=== PATIENT | female | born 1955 | race Caucasian/White ===

== ENCOUNTER 2016-08-18 07:00 | Inpatient (IN) | payer OTHER ==
--- NOTE | ~2016-08-18 | HP ---
Unit #: [id number] #: [id number] Patient: TERRENCE RODGERS [id number] [place] [address] [id number] I MR#: [id number] NAME: TERRENCE RODGERS ROOM: P256 Age: 61 Sex: F Admission Date: 08/18/2016 : 1955 Attending Physician: Praveen Cabrales M.D. Admitting Physician: Praveen Cabrales M.D. Primary Care Physician: Generic Doctor Not In System HISTORY AND PHYSICAL HISTORY OF PRESENT ILLNESS Terrence is a 61 year old admitted to [address] [place] [address] with depression and after an alleged overdose of Seroquel. PAST MEDICAL HISTORY 1. Hypothyroidism. 2. Hypercholesterolemia. 3. High blood pressure. PAST SURGICAL HISTORY Nothing reported. ALLERGIES No known drug allergies. SOCIAL HISTORY She denies cigarettes, alcohol and illicit drug use. FAMILY HISTORY Medically noncontributory. REVIEW OF SYSTEMS CONSTITUTIONAL: No fever or chills. HEENT: Denies any sore throat, ear pain or runny nose. CARDIOVASCULAR: Denies chest pain, irregular heart rhythm or palpitations. CHEST: Denies shortness of breath or cough. No hemoptysis. GASTROINTESTINAL: Denies nausea, vomiting, diarrhea or chronic constipation. ENDOCRINE: Denies history of increased thirst or urination. No recent significant weight loss or gain. GENITOURINARY: Denies dysuria, frequency, or hematuria. SKIN: Denies any rashes. HEMATOLOGIC: Denies history of increased bleeding or bruising. MUSCULOSKELETAL: Denies any hot, swollen joints. No generalized muscle pain. NEUROLOGIC: Denies problems with vision or speech. No frequent, severe headaches. No numbness, tingling or weakness in any extremities. Denies loss of bladder or bowel control. CURRENT MEDICATIONS No orders received at the time of this dictation. PHYSICAL EXAMINATION Unit #: [id number] #: [id number] Patient: TERRENCE RODGERS GENERAL: Alert, well-nourished, in no apparent distress. VITAL SIGNS: Blood pressure 100/60, heart rate 70, respirations 16, temperature 98.6. WEIGHT: 124. HEIGHT: 5 feet 0 inches. SKIN: Warm and dry without rash or lesion. HEENT: Normocephalic. TMs not viewed. Oral and nasal passages clear. Conjunctivae clear. PERRLA. EOMs intact. NECK: Supple without lymphadenopathy or thyromegaly. HEART: Regular rate and rhythm without murmur. LUNGS: Clear. ABDOMEN: Soft, nontender. : Not done. EXTREMITIES: No evidence of cyanosis, clubbing or edema. Moves all without focal deficit. NEUROLOGICAL: Grossly within normal limits. Cranial Nerves: II: Visual mcadams are intact. III, IV AND : Extraocular movements are intact. Pupils are equal, round and reactive to light. V: Facial sensation is grossly normal. VII: Facial movements and expression are normal. VIII: Auditory acuity grossly intact. IX, X: Uvula is midline. Phonation is normal. XI: Patient shrugs shoulders and turns head normally. XII: Tongue protrudes in the midline. Sensory and Motor Function: Sensory and motor sensation is grossly normal. Motor: moves all extremities well. Coordination: Gait is normal. Deep Tendon Reflexes: Intact. IMPRESSION Psychiatric admission. RECOMMENDATIONS PSYCHIATRIC: Per psychiatrist. MEDICAL: See no contraindications to participate in facility's activities. MEDICAL PROGNOSIS Good. MEDICAL CONDITION Stable. Dictated by... Mariah Gutierrez P.A.-C. for Paige Mcdaniels/ramón TD: 08/18/2016 18:17 JOB #: [id number] Unit #: [id number] #: [id number] Patient: TERRENCE RODGERS HISTORY AND PHYSICAL Page 1 of 1 X Mariah Gutierrez HISTORY AND PHYSICAL
--- NOTE | ~2016-08-18 | PN ---
Unit #: [id number] #: [id number] Patient: TERRENCE RODGERS [id number] [facility] [address] [place] [address] [id number] I MR#: [id number] NAME: TERRENCE RODGERS ROOM: P256 Age: 61 Sex: F Admission Date: 08/18/2016 : 1955 Attending Physician: Praveen Cabrales M.D. Admitting Physician: Praveen Cabrales M.D. Primary Care Physician: Generic Doctor Not In System [facility] PROGRESS NOTES DATE 08/21/2016 DISCUSSION Ms. Wyatt is a 61-year-old female seen on 08/21/2016. The patient was started on Latuda tolerating medication fairly well. Mood sad, dysphoric, flat affect, guarded, very superficial denied any complaints. Complete review of systems unremarkable. MENTAL STATUS EXAMINATION General appearance, the patient dressed casually. Attention span and concentration fair. Oriented to place and person. Mood and affect sad, dysphoric, speech monotone. Thought process concrete. The patient denied any thoughts of harming self or others. Recent and remote memory poor. Insight and judgement poor. DIAGNOSES Bipolar mood disorder NOS F31.9 ASSESSMENT/PLAN Advise to continue with current medication and therapeutic protocol. The patient will be on Latuda 40 mg today. We will also get a family session before discharging the patient. Continue with the inpatient programming. Dictated by... Paige Salinas/migdalia TD: 08/24/2016 02:48 JOB #: [id number] [facility] PROGRESS NOTES Page 1 of 1 X Praveen Cabrales MD PROGRESS NOTE
--- NOTE | ~2016-08-18 | PN ---
Unit #: [id number] #: [id number] Patient: TERRENCE RODGERS [id number] [facility] [address] [place] [address] [id number] I MR#: [id number] NAME: TERRENCE RODGERS ROOM: P256 Age: 61 Sex: F Admission Date: 08/18/2016 : 1955 Attending Physician: Praveen Cabrales M.D. Admitting Physician: Praveen Cabrales M.D. Primary Care Physician: Generic Doctor Not In System [facility] PROGRESS NOTES DATE OF SERVICE 08/19/16 DISCUSSION Ms. Wyatt is a 61-year-old female seen on 08/19/16. Patient pleasant, cooperative, dressed casually. Attention span and concentration fair. Oriented in place and person. Mood sad, dysphoric. Patient was able to maintain safe behavior on the unit, but reported above-mentioned symptoms. COMPLETE REVIEW OF SYSTEMS Unremarkable. MENTAL STATUS EXAMINATION GENERAL APPEARANCE: Patient dressed casually. ATTENTION SPAN AND CONCENTRATION: Fair. Oriented in time, place and person. MOOD AND AFFECT: Sad, dysphoric. SPEECH: Monotone. THOUGHT PROCESS: [place]. Patient denied any thoughts of harming self or others, but sad, depressed, withdrawn, isolative. RECENT AND REMOTE MEMORY: Poor. INSIGHT AND JUDGMENT: Poor. DIAGNOSIS Bipolar mood disorder, NOS, F31.9 ASSESSMENT/PLAN Advised to continue with current medication and therapeutic protocol. If needed, consider alternate medication. We will continue to monitor patient mood and behavior closely. Dictated by... Paige Salinas/britney TD: 08/20/2016 10:43 JOB #: [id number] Unit #: [id number] #: [id number] Patient: TERRENCE RODGERS [facility] PROGRESS NOTES Page 1 of 1 X Praveen Cabrales MD PROGRESS NOTE
--- NOTE | ~2016-08-18 | DS ---
Unit #: [id number] #: [id number] Patient: TERRENCE RODGERS [id number] [facility] [address] [place] [address] [id number] I MR#: [id number] NAME: TERRENCE RODGERS ROOM: P256 Age: 61 Sex: F Admission Date: 08/18/2016 : 1955 Discharge Date: 08/22/2016 Attending Physician: Praveen Cabrales M.D. Primary Care Physician: Generic Doctor Not In System DISCHARGE SUMMARY REASON FOR ADMISSION Depression. DIAGNOSTIC STUDIES LABORATORY RESULTS: Unremarkable. HOSPITAL COURSE The patient was admitted to inpatient unit on 08/18/2016 and discharged on 08/22/2016. The patient was treated on the inpatient unit with group therapy, psychotherapy, individual therapy, structured milieu, medication management. The patient responsive to treatment. Subsequently, the patient was discharged with a plan to follow up in outpatient program. DISCHARGE MEDICATIONS Latuda 40 mg daily for mood stabilization. DISCHARGE DIAGNOSES Psychiatric: Bipolar mood disorder, recurrent, depressed, F31.9; obsessive-compulsive disorder. Secondary diagnosis: Deferred. Medical diagnosis: Hypothyroidism, hypercholesterolemia, hypertension. Stressors: Psychosocial stressors. DISCHARGE INSTRUCTIONS The patient to follow up in outpatient clinic as per medical social worker. CONDITION ON DISCHARGE The patient was pleasant and cooperative. Denied any psychotic symptom or any suicidal ideation. PROGNOSIS Guarded. DIET AND ACTIVITY As tolerated. Dictated by... Praveen Cabrales M.D. Unit #: [id number] #: [id number] Patient: TERRENCE RODGERS SZC/modl TD: 08/23/2016 20:00 JOB #: [id number] DISCHARGE SUMMARY Page 1 of 1 X Praveen Cabrales MD X DISCHARGE SUMMARY
--- NOTE | ~2016-08-18 | PN ---
Unit #: [id number] #: [id number] Patient: TERRENCE RODGERS [id number] [facility] [address] [place] [address] [id number] I MR#: [id number] NAME: TERRENCE RODGERS ROOM: P256 Age: 61 Sex: F Admission Date: 08/18/2016 : 1955 Attending Physician: Praveen Cabrales M.D. Admitting Physician: Praveen Cabrales M.D. Primary Care Physician: Generic Doctor Not In System [facility] PROGRESS NOTES DATE 08/20/2016 DISCUSSION Ms. Wyatt is a 61-year-old female seen on 08/20/2016. The patient interviewed, chart reviewed. Obtained information from nursing staff. The patient was compliant and cooperative. Mood sad, dysphoric, flat affect, guarded. The patient did not show any aggressive behavior but still having mood lability. The patient was on Seroquel. The patient agreed with a plan to try Latuda for mood stabilization. Complete review of systems unremarkable. MENTAL STATUS EXAMINATION General appearance, the patient dressed casually. Attention span and concentration fair. Oriented to place and person. Mood and affect labile. Speech monotone. Thought process concrete. The patient denied any thoughts of harming self or others. Recent and remote memory poor. Insight and judgement poor. DIAGNOSES Bipolar mood disorder NOS ASSESSMENT/PLAN Advise to continue with current medication and therapeutic protocol and start Latuda 20 mg and going up to 40 mg daily. If needed consider further adjustment of medication. Dictated by... Paige Salinas/migdalia TD: 08/23/2016 01:54 JOB #: [id number] Unit #: [id number] #: [id number] Patient: TERRENCE RODGERS [facility] PROGRESS NOTES Page 1 of 1 X Praveen Cabrales MD X PROGRESS NOTE
--- NOTE | ~2016-08-18 | PA ---
Unit #: [id number] #: [id number] Patient: TERRENCE RODGERS [id number] [facility] [address] [place] [address] [id number] I MR#: [id number] NAME: TERRENCE RODGERS ROOM: P256 Age: 61 Sex: F Admission Date: 08/18/2016 : 1955 Date of Assessment: Attending Physician: Praveen Cabrales M.D. Admitting Physician: Praveen Cabrales M.D. Primary Care Physician: Generic Doctor Not In System PSYCHIATRIC ASSESSMENT INFORMANTS The patient reliability, fair informant and chart reliability, good. CHIEF COMPLAINT Depression. HISTORY OF PRESENT ILLNESS Ms. Wyatt is a 61-year-old female, admitted after taking an overdose. The patient reports she suffers from depression. Diagnosed with bipolar disorder, prescribed Seroquel. Reports taking overdose of Seroquel. The patient has a history of previous treatment inpatient twice at . The patient lives with her . Denied any major stressor. The patient was seen at the [facility]. She took intentional overdose of 12 Seroquel yesterday and collapsed at home. The patient's brought her to the hospital. The patient took overdose yesterday before with 30 gabapentin, but it did not do anything according to the patient. The patient reports that she has never attempted suicide before, but has had suicidal thoughts for a while. The patient has always struggled with bipolar disorder, highs and lows and reports lately feeling really low. The patient reports that she is a stay at home and struggles with OCD issues at home. indicated that her OCD seems to be debilitating to her. The patient has total meltdowns about simple things. The patient reports that she has been on Seroquel for some time, it does not seem to be working. The patient started having mood swings in the last 2 months; poor sleep; poor appetite; excessive self-care, bathing three times; and increased OCD symptoms. The patient denied any use of any drugs or alcohol. Denied any homicidal ideation or psychotic symptom. Needing inpatient admission at this time for psychiatric stabilization. PAST PSYCHIATRIC HISTORY Remarkable for history of previous treatment inpatient twice at as a teenager. No history of any previous suicide attempt. FAMILY HISTORY AND SOCIAL HISTORY The patient has a good support system. No history of any abuse. No substance abuse. MEDICAL HISTORY Remarkable for history of hypothyroidism, hypertension, constipation, and acid reflux disease. Musculoskeletal; muscle strength and tone, no atrophy or abnormal movement. Gait normal. MEDICATION HISTORY Unit #: [id number] #: [id number] Patient: TERRENCE RODGERS The patient is on B12, vitamin D2, omeprazole, levothyroxine, metoprolol, Crestor, Seroquel XR 300 mg at bedtime, gabapentin 600 mg in the morning, and Trilipix. ALLERGIES No known drug allergies. SUBSTANCE ABUSE HISTORY None. REVIEW OF SYSTEMS HEENT: Eyes, clear. Ears, nose, mouth, and throat; clear. CARDIOVASCULAR: Unremarkable. RESPIRATORY: Unremarkable. GI: Unremarkable. : Unremarkable. SKIN: Unremarkable. LYMPH NODE: Unremarkable. NEUROLOGIC: Unremarkable. ENDOCRINE: Unremarkable. HEMATOLOGIC: Unremarkable. ALLERGIC/IMMUNOLOGIC: Unremarkable. MUSCULOSKELETAL: Muscle strength and tone, no atrophy or abnormal movement. Gait normal. MENTAL STATUS EXAMINATION CONSTITUTIONAL: Measurement of vital signs; temperature 98.7, heart rate 69, respiratory rate 16, and blood pressure 97/59. Height 5 feet and weight 124 pounds. GENERAL APPEARANCE: The patient dressed casually, thin built, and short statured. The patient did not show any facial deformity. MUSCULOSKELETAL: Please see above. PSYCHIATRIC EXAMINATION Description of speech; regular rate, normal volume, and coherent. Description of thought process, goal directed. Description of association, intact. Description of abnormal psychotic thinking; the patient denied any hallucinations, delusions, or any mood lability, but still reported feeling sad and depressed. Denied any current suicidal ideation, but recent suicide attempt. Denied any hallucination. Description of the patient's judgment: Concerning everyday activity, poor. Social situation, poor. Concerning psychiatric condition, poor. Complete mental status examination; oriented in time, place, and person. Recent and remote memory, fair. Attention span and concentration, fair. Language, able to name object and repeat phrases. Fund of knowledge, aware of current event and passive vocabulary intact. Mood and affect, sad and dysphoric. Insight and judgment, fair to poor. ASSETS AND LIABILITIES Assets, the patient is articulate and able to take care of her ADL. Liability, history of depression and bipolar disorder. ADMITTING DIAGNOSES Psychiatric: Bipolar mood disorder, recurrent, depressed, F31.9 and obsessive compulsive disorder. Secondary diagnosis: Deferred. Unit #: [id number] #: [id number] Patient: TERRENCE RODGERS Medical diagnoses: Hypothyroidism, hypercholesterolemia, and hypertension. Stressors: Psychosocial stressors. PSYCHIATRIC PLAN AND TREATMENT GOAL AND DISCHARGE PLAN 1. Advised to admit the patient on the inpatient unit. Provide safe, supportive, and structured environment. 2. Ordered labs; CBC, CMP, UA, and UDS. 3. Precaution for self-harm. 4. The patient to continue with the other medication except stop all psychotropic medication at this time because of overdosing on Neurontin and Seroquel. If needed, consider alternative medication. TREATMENT GOAL To attain euthymic mood, gain insight into her problem, and learn coping skills. DISCHARGE PLAN Plan to stabilize the patient and consider followup in outpatient program. ESTIMATED LENGTH OF STAY 7 to 10 days. Dictated by... Praveen Cabrales M.D. ALEXANDRA/marilia TD: 08/19/2016 17:27 JOB #: [id number] PSYCHIATRIC ASSESSMENT Page 1 of 1 X Praveen Cabrales MD X PSYCHIATRIC ASSESSMENT
== END 2016-08-22 10:46 | disposition home or self-care (01) | DRG 885 ==
LOC: P2L 12:33
DX: F31.9 Bipolar disorder, unspecified (principal); I10 Essential (primary) hypertension; F42.9 Obsessive-compulsive disorder, unspecified; E03.9 Hypothyroidism, unspecified; E78.00 Pure hypercholesterolemia, unspecified